=== PATIENT | female | born 1960 | race Caucasian/White ===

== ENCOUNTER 2019-07-18 08:03 | Day surgery (SDC) | payer BC ==
[2019-07-14 12:06] VITALS: BMI 33.5
[~2019-07-18 08:03] MED LIST: BUPIVACAINE LIPOSOME/PF (EXPAREL) 266 MG/20 ML VIAL ONE; BUPIVICAINE 0.25%/MORPH PF/KETOROLAC - 51ML DISP.SYRINGE IA ONE; CEFAZOLIN 2 GM in DEXTROSE 5%-WATER - 50 ML IVPB ONE; CELECOXIB 200 MG CAPSULE PO ONE; MIDAZOLAM HCL 2 MG/2 ML SINGLE DOSE VIAL ONE; SODIUM CHLORIDE 0.9% P/F 10 ML VIAL IJ ONE; TRANEXAMIC ACID 1000 MG/10 ML VIAL IVPUSH ONE
--- NOTE | 2019-07-18 08:03 | HP ---
[facility] - Chief Complaint Chief Complaint: left knee pain - Past Medical History Allergies/Adverse Reactions: Allergies Allergy/AdvReac Type Severity Reaction Status Date / Time No Known Allergies Allergy Verified 07/09/19 15:07 - Current Medications Current Medications: Home Medications Medication Instructions Recorded NK [No Known Home Medication] 07/09/19 [facility] Physical Exam - Physical Examination General Appearance: Well Nourished, Well Developed, Alert & Oriented x3 ENT: Clear Lung: Normal air movement Heart: Regular rate & rhythm Extremities: Other (left knee- +swelling, + ttp medially, decr rom, nvi, xrays show grade4 medial compartment djd) Neurological: Intact, Alert, Oriented [facility] Impression/Plan - Impression/Plan Impression: left knee medial djd Operative Procedure: left medial [place] ukr Date to be Performed: 07/18/19
[2019-07-18] MEDS ORDERED: CELECOXIB 200 MG CAPSULE PO ONE (08:32)
[2019-07-18] MEDS ORDERED: ceFAZolin SODIUM 1 GM VIAL ONE ×2 (08:39→09:58)
[2019-07-18] MEDS ORDERED: THROMBIN (RECOMBINANT) 5,000 UNIT VIAL TP ONE (08:39)
[2019-07-18] MEDS ORDERED: GELATIN, ABSORBABLE 12-7MM EACH SPONGE TP ONE (08:40)
[2019-07-18] MEDS ORDERED: BUPIVACAINE HCL/PF 0.5% (5 MG/ML) 30 ML VIAL IJ ONE (08:50)
[2019-07-18] MEDS ORDERED: ONDANSETRON 4 MG/2 ML VIAL ONE (09:58)
[2019-07-18] MEDS ORDERED: DEXAMETHASONE SOD PHOSPHATE 4 MG/1 ML VIAL ONE (09:58)
[2019-07-18] MEDS ORDERED: ONDANSETRON 4 MG/2 ML VIAL IVPUSH PRN ×2 (10:09→12:12)
[2019-07-18] MEDS ORDERED: MAG HYDROX/AL HYDROX/SIMETH 30 ML UNIT-DOSE CUP PO PRN (10:09)
[2019-07-18] MEDS ORDERED: LACTATED RINGERS SOLUTION 1,000 ML IV SCH (10:15)
[2019-07-18] MEDS ORDERED: THROMBIN (BOVINE) 5,000 UNIT VIAL TP ONE (10:31)
[2019-07-18] MEDS ORDERED: GELATIN, ABSORBABLE 100 EACH SPONGE TP ONE (10:32)
[2019-07-18] MEDS ORDERED: BUPIVICAINE 0.25%/MORPH PF/KETOROLAC - 51ML DISP.SYRINGE IA ONE (11:10)
--- NOTE | 2019-07-18 11:35 | OP ---
Operative Note - Note: Operative Date: 07/18/19 (eb) Pre-Operative Diagnosis: left knee medial djd Operation: left medial [place] ukr Post-Operative Diagnosis: Same as Pre-op Surgeon: Mike Arciniega [employer] System Administrator: Adiel Fuentes Anesthesiologist/QUALITY ASSURANCE: Guanako Velez Anesthesia: Spinal, Local Specimens Removed: bone fragments Estimated Blood Loss (mls): 150 Operative Report Dictated: Yes
[2019-07-18] MEDS ORDERED: PROMETHAZINE HCL 25 MG/1 ML VIAL IVPUSH PRN (12:12)
[2019-07-18] MEDS ORDERED: oxyCODONE HCL 5 MG TABLET PO PRN ×2 (12:12)
[2019-07-18] MEDS: ACETAMINOPHEN 325 MG TABLET (FP) PO SCH ×2 (12:17→17:51)
[2019-07-18] MEDS ORDERED: INSULIN (NOVOLOG) ASPART 100 UNITS/ML 10ML VIAL ONE (16:46)
[2019-07-18] MEDS: INSULIN SLIDING SCALE (NOVOLOG) 1 VIAL SQ SCH ×2 (16:58→21:51)
[2019-07-18] MEDS: CEFAZOLIN 2 GM/D5W 2 GM/50 ML ML IVPB SCH (17:50)
[2019-07-18] MEDS: oxyCODONE HCL 10 MG SUSTAINED ACTING TABLET PO SCH (21:49)
[2019-07-18] MEDS: SENNOSIDES/DOCUSATE COMBO (SENNA PLUS) TABLET (UD) PO SCH (21:51)
[2019-07-18] MEDS ORDERED: ATORVASTATIN CA 20 MG TABLET (FP) PO SCH (22:00)
[2019-07-19] MEDS: ACETAMINOPHEN 325 MG TABLET (FP) PO SCH ×2 (00:53→06:29)
[2019-07-19] MEDS: CEFAZOLIN 2 GM/D5W 2 GM/50 ML ML IVPB SCH (01:08)
[2019-07-19] MEDS: INSULIN SLIDING SCALE (NOVOLOG) 1 VIAL SQ SCH (06:30)
--- NOTE | 2019-07-19 06:30 | SPEC ---
DATE OF OPERATION: 07/18/2019 PREOPERATIVE DIAGNOSIS: Left knee degenerative joint disease. POSTOPERATIVE DIAGNOSIS: Left knee degenerative joint disease. PROCEDURE: Left medial unicompartmental knee replacement with robotic-assisted navigation (MAKOplasty) and patelloplasty. SURGICAL ATTENDING: Mike Arciniega MD ANESTHESIA: Regional and spinal. CLOSURE: Medial DARLEEN components with a 4 femur, 3 tibia, and 9 polyethylene; No. 1 Vicryl fascia, 0 and 2-0 subcutaneous, 3-0 Monocryl subcuticular with skin glue for skin, 4-0 undyed Vicryl for pin sites. ESTIMATED BLOOD LOSS: Less than 100 mL. COMPLICATIONS: None. CONDITION: To recovery in stable condition. DESCRIPTION OF OPERATIVE PROCEDURE: Patient was taken to the operating room on July 18, 2019. Spinal and regional anesthesia was administered by the anesthesiologist. IV Kefzol and TXA were administered prophylactically prior to the case. A well-padded pneumatic tourniquet was placed on the left proximal thigh. The left lower extremity was prepped and draped in the usual sterile fashion. A 6- to 8-cm longitudinal incision over the medial side of the patella from mid patella to the tibial tubercle was incised and was deepened using Bovie cautery. An arthrotomy was then made just medial to the patellar tendon and the patella. Subperiosteal dissection was done on the anteromedial proximal tibia all the way back to the MCL. Partial fat pad excision was performed, exposing the medial compartment. Checkpoint was malleable at both the femur and the tibia. Using 2 stab incisions in the femur 1 handbreadth above the patella on the femur and 2 stab incisions 1 handbreadth below the tibial tubercle on the tibia, 2 threaded pins were drilled in parallel fashion from anterior to posterior, going through the proximal cortex and engaging the 2nd but not through the 2nd cortex. To these threaded pins were fastened navigation rays, 1 on the femur and 1 on the tibia. The knee was then registered with the navigation device with the center of the rotation of the hip, medial and lateral malleoli, and multiple points both on the femur and on the tibia. Excellent registration of less than 0.5 mm was obtained on both to ensure adequate registration. The navigation device ensured us to "pop the bubbles" both on the femur and the tibia and that was performed and passed registration. The knee was then thoroughly inspected to remove all osteophytes both on the femur and the tibia. Also, osteophytes on the trochlea and on the surface of the patella were removed as well. The knee was then stressed with valgus stress at 0, 30, 60, 90, and 120 degrees of flexion. This propagated a looseness/tightness graft. The virtual positions of the components were then optimized to ensure an excellent graft. The tracking also was optimized by manipulating the virtual position to ensure that the femoral component articulated with the central portion of the tibial component. The robot was then brought into the field and was registered. The robot was used to bur the bone on both the femur and the tibia as to the specifications of the components. The trial components were then applied on both the femur and the tibia with an appropriate polyethylene insert. The knee was taken through a range of motion and found to have full extension, full flexion, with excellent stability. Stressing the graft revealed an excellent looseness/tightness graft with the trial components in place. The trial components were removed. The knee was thoroughly irrigated with a copious amount of antibiotic irrigation. The real components were then cemented in using modern generation cement techniques with antibiotic cement and pressurization. After the cement was hardened, the knee was thoroughly inspected to remove out all excess cement. The real polyethylene insert was then clipped into place. Range of motion and stability were again assessed to be as they were with the trials. At this time, the pins and the checkpoints were removed. The knee was again thoroughly irrigated. The arthrotomy was closed with No. 1 Vicryl, 0 and 2-0 subcutaneous, and 3-0 Monocryl subcuticular with skin glue for the skin, 4-0 undyed Vicryl for the pin sites. Sterile pressure dressing was placed over the knee. Patient awakened from anesthesia and transferred to recovery in stable condition. No complications. Estimated blood loss negligible. X-rays postoperatively revealed excellent position of the components. Ceferino [id number]
[2019-07-19 06:53] VITALS: BP 138/73; PULSE 74; TEMP 97.5
[2019-07-19] MEDS ORDERED: metFORMIN HCL 500 MG TABLET (FP) PO SCH (07:00)
[2019-07-19] MEDS ORDERED: ASPIRIN 325 MG TABLET PO SCH (08:00)
[2019-07-19] MEDS: SENNOSIDES/DOCUSATE COMBO (SENNA PLUS) TABLET (UD) PO SCH (09:58)
[2019-07-19] MEDS: oxyCODONE HCL 10 MG SUSTAINED ACTING TABLET PO SCH (09:59)
[2019-07-19] MEDS ORDERED: MULTIVITAMINS (DAILY MVI) TABLET (FP) PO SCH (10:00)
[2019-07-19] MEDS ORDERED: LISINOPRIL 5 MG TABLET (FP) PO SCH (10:00)
[2019-07-19] MEDS ORDERED: PANTOPRAZOLE 40 MG TABLET (FP) PO SCH (10:00)
[2019-07-19] MEDS ORDERED: FERROUS SO4 325 MG TABLET (FP) PO SCH (10:00)
== END 2019-07-19 10:28 | disposition home health service (06) ==
LOC: FM/S 08:03 → FASUSAT 08:03
PROVIDERS: ATTEND Orthopaedic Surgery
PROC: 8E0YXBZ Computer Assisted Procedure of Lower Extremity (ICD-10-PCS; 2019-07-18)
PROC: 8E0Y0CZ Robotic Assisted Procedure of Lower Extremity, Open Approach (ICD-10-PCS; 2019-07-18)
PROC: 0SRD0L9 Replacement of Left Knee Joint with Medial Unicondylar Synthetic Substitute, Cemented, Open Approach (ICD-10-PCS; principal; 2019-07-18 10:14)
DX: M17.12 Unilateral primary osteoarthritis, left knee (principal)
CPT/HCPCS: 20985; 27446; C1776; S2900; 73560-TC-LT-FY; 82962; 94760; 97116-GP; 97162-GP

== ENCOUNTER → 2022-05-03 | Day surgery (SDC) | payer BC | END | disposition home or self-care (01) | LOC: JRADUS-SUR 10:07 | PROVIDERS: ATTEND Family Medicine | PROC: 0H9T3ZX Drainage of Right Breast, Percutaneous Approach, Diagnostic (ICD-10-PCS; principal; 2022-05-03) | DX: C50.911 Malignant neoplasm of unspecified site of right female breast (principal) | CPT/HCPCS: 19083; 77065-TC; 87899; 88305-TC; 88342-TC; A4648 ==

== ENCOUNTER 2022-06-20 04:23 | Day surgery (SDC) | payer BC ==
[2022-06-15 09:24] VITALS: BMI 34.5
[2022-06-20] MEDS ORDERED: PROPOFOL 20 ML ONE ×2 (08:45→15:33)
[2022-06-20] MEDS ORDERED: SUCCINYLCHOLINE CHLORIDE 200 MG/10 ML SYRINGE ONE (08:45)
[2022-06-20] MEDS ORDERED: MIDAZOLAM HCL 2 MG/2 ML SINGLE DOSE VIAL ONE (10:09)
[2022-06-20] MEDS ORDERED: HYDROmorphone HCl 2 MG/ML VIAL ONE (10:11)
[2022-06-20] MEDS ORDERED: LIDOCAINE HCL/PF 2% SDV 5ML VIAL ONE (10:12)
[2022-06-20] MEDS ORDERED: ceFAZolin SODIUM 1 GM VIAL IVPB ONE ×2 (11:45→15:30)
[2022-06-20] MEDS ORDERED: DEXAMETHASONE SOD PHOSPHATE 4 MG/1 ML VIAL ONE ×2 (11:49→15:32)
[2022-06-20] MEDS ORDERED: ceFAZolin SODIUM 1 GM VIAL ONE ×2 (11:49→15:29)
[2022-06-20] MEDS ORDERED: ONDANSETRON 4 MG/2 ML VIAL IVPB PRN (13:50)
[2022-06-20] MEDS ORDERED: ALPRAZolam 0.25 MG TABLET PO ONE (13:50)
[2022-06-20] MEDS ORDERED: ACETAMINOPHEN 500 MG TABLET (FP) PO PRN (13:50)
[2022-06-20] MEDS ORDERED: HYDROmorphone *PCA* 10MG/50ML DISP.SYRIN PCA SCH ×2 (14:00→17:00)
[2022-06-20] MEDS ORDERED: LACTATED RINGERS SOLUTION 1,000 ML/1,000 ML INFUS.BAG IV SCH (14:00)
[2022-06-20] MEDS ORDERED: oxyCODONE HCL 5 MG TABLET PO PRN (16:27)
[2022-06-20] MEDS ORDERED: HYDROmorphone *PCA* 10MG/50ML DISP.SYRIN ONE (17:02)
[2022-06-20] MEDS ORDERED: CEFAZOLIN 1 GM in DEXTROSE 5%-WATER - 50 ML IVPB SCH ×3 (18:00→23:45)
[2022-06-20 21:21] VITALS: RESP 20
[2022-06-21] MEDS: CEFAZOLIN 1 GM in DEXTROSE 5%-WATER - 50 ML IVPB SCH ×2 (00:13→06:54)
[2022-06-21 07:43] VITALS: BP 134/69; PULSE 83
[2022-06-21 08:07] VITALS: TEMP 98.9
== END 2022-06-21 11:52 | disposition home or self-care (01) ==
LOC: JASUSAT 04:23 → EDSTATUS 09:00 → J8W 20:12 → JASUSAT 06-21 11:52
PROVIDERS: ATTEND Surgery
PROC: 0HTV0ZZ Resection of Bilateral Breast, Open Approach (ICD-10-PCS; principal; 2022-06-20 10:30)
PROC: 0HRV0JZ Replacement of Bilateral Breast with Synthetic Substitute, Open Approach (ICD-10-PCS; 2022-06-20 10:30)
DX: C50.911 Malignant neoplasm of unspecified site of right female breast (principal); D24.2 Benign neoplasm of left breast
CPT/HCPCS: 78195-TC; 82962; 88307-TC; 94760; A9541; C1781; C1789; Q4116

== ENCOUNTER 2022-10-18 10:57 | Day surgery (SDC) | payer BC ==
[~2022-10-18 10:57] MED LIST changes: -BUPIVACAINE LIPOSOME/PF (EXPAREL) 266 MG/20 ML VIAL ONE; -BUPIVICAINE 0.25%/MORPH PF/KETOROLAC - 51ML DISP.SYRINGE IA ONE; -CEFAZOLIN 2 GM in DEXTROSE 5%-WATER - 50 ML IVPB ONE; -CELECOXIB 200 MG CAPSULE PO ONE; +DEXAMETHASONE SODIUM PHOSPHATE 10 MG in SODIUM CHLORIDE 50 ML IVPB ONE; +FOSAPREPITANT DIMEGLUMINE 150 MG in SODIUM CHLORIDE 145 ML IVPB ONE; -MIDAZOLAM HCL 2 MG/2 ML SINGLE DOSE VIAL ONE; +PALONOSETRON HCL 0.25 MG/5 ML VIAL IVPUSH ONE; -SODIUM CHLORIDE 0.9% P/F 10 ML VIAL IJ ONE; +SODIUM CHLORIDE 250 ML IV ONE; +SODIUM CHLORIDE IVPB ONE; -TRANEXAMIC ACID 1000 MG/10 ML VIAL IVPUSH ONE; +TRASTUZUMAB ANNS IVPB ONE
[2022-10-18 11:26] LABS: BASO % 0.7 % (0-2.0); EOS % 1.6 % (0-4.5); HEMATOCRIT 39.2 % (32.4-45.2); HEMOGLOBIN 12.5 GM/dL (10.7-15.3); LYMPH % 43.4 % (8-40); MCH 27.7 pg (25.7-33.7); MCHC 31.9 g/dl (32.0-36.0); MEAN CELL VOLUME 86.8 fl (80-96); MEAN PLT VOLUME 8.6 fl (7.5-11.1); MONO % 6.2 % (3.8-10.2); NEUT % 48.1 % (42.8-82.8); PLATELET COUNT 243 10^3/uL (134-434); RBC 4.52 M/mm3 (3.60-5.2); RDW 15.4 % (11.6-15.6); WHITE BLOOD COUNT 8.5 K/mm3 (4.0-10.0)
[2022-10-18 11:38] LABS: ALBUMIN 3.8 g/dl (3.4-5.0); BLOOD UREA NITROGEN 19.3 mg/dL (7-18); CALCIUM 9.5 mg/dL (8.5-10.1); MAGNESIUM 2.1 mg/dL (1.8-2.4)
[2022-10-18 11:41] LABS: BILIRUBIN,DIRECT 0.1 mg/dL (0.0-0.2); CREATININE 0.8 mg/dL (0.55-1.3)
[2022-10-18 11:43] LABS: BILIRUBIN,TOTAL 0.3 mg/dL (0.2-1); TOT PROT 7.8 g/dl (6.4-8.2)
[2022-10-18] MEDS ORDERED: DOCETAXEL 140 MG in SODIUM CHLORIDE 250 ML IV ONE (12:00)
[2022-10-18] MEDS ORDERED: CARBOPLATIN IVPB ONE ×2 (13:00)
[2022-10-18] MEDS ORDERED: SODIUM CHLORIDE IVPB ONE ×2 (13:00)
[2022-10-18 18:18] VITALS: RESP 18; TEMP 98.1
[2022-10-18 18:28] VITALS: BP 145/80; PULSE 77
[2022-10-18] MEDS ORDERED: PORTA CATH FLUSH 10 ML IVPUSH PRN (18:28)
== END 2022-10-18 15:45 | disposition home or self-care (01) ==
LOC: JONCCHEMO 10:57
PROVIDERS: ATTEND Internal Medicine Hematology & Oncology
DX: Z51.11 Encounter for antineoplastic chemotherapy (principal); C50.011 Malignant neoplasm of nipple and areola, right female breast; Z17.1 Estrogen receptor negative status [ER-]
CPT/HCPCS: 36415; 80048; 80076; 82378; 83735; 85025; 86300; 96367; 96375; 96413; 96417; J1453; J2469; J9171

== ENCOUNTER 2022-10-19 09:34 | Day surgery (SDC) | payer BC ==
[2022-10-19] MEDS ORDERED: PEGFILGRASTIM-CBQV (UDENYCA) 6 MG/0.6 ML SYRINGE SQ ONE (10:00)
[2022-10-19 10:23] VITALS: BP 160/77; PULSE 78; RESP 20; TEMP 97.5
== END 2022-10-19 10:27 | disposition home or self-care (01) ==
LOC: JONCCHEMO 09:34
PROVIDERS: ATTEND Internal Medicine Hematology & Oncology
PROC: 3E013GC Introduction of Other Therapeutic Substance into Subcutaneous Tissue, Percutaneous Approach (ICD-10-PCS; principal; 2022-10-19)
DX: C50.011 Malignant neoplasm of nipple and areola, right female breast (principal); Z76.89 Persons encountering health services in other specified circumstances
CPT/HCPCS: 96372; Q5111

== ENCOUNTER 2022-11-08 11:24 | Day surgery (SDC) | payer BC ==
[~2022-11-08 11:24] MED LIST changes: +LIDOCAINE 2.5%/PRILOCAINE 2.5% 30 GRAM TUBE TP ONE
[2022-11-08] MEDS ORDERED: SODIUM CHLORIDE IV ONE (11:30)
[2022-11-08] MEDS ORDERED: DOCETAXEL IV ONE (11:30)
[2022-11-08] MEDS ORDERED: LIDOCAINE 2.5%/PRILOCAINE 2.5% (5 Gram/TUBE) TP ONE (11:30)
[2022-11-08 12:11] LABS: BASO % 0.7 % (0-2.0); EOS % 0.6 % (0-4.5); HEMATOCRIT 37.3 % (32.4-45.2); HEMOGLOBIN 12.2 GM/dL (10.7-15.3); LYMPH % 39.1 % (8-40); MCH 28.5 pg (25.7-33.7); MCHC 32.6 g/dl (32.0-36.0); MEAN CELL VOLUME 87.3 fl (80-96); MEAN PLT VOLUME 7.6 fl (7.5-11.1); MONO % 8.2 % (3.8-10.2); NEUT % 51.4 % (42.8-82.8); PLATELET COUNT 294 10^3/uL (134-434); RBC 4.27 M/mm3 (3.60-5.2); RDW 15.6 % (11.6-15.6); WHITE BLOOD COUNT 10.6 K/mm3 (4.0-10.0)
[2022-11-08] MEDS ORDERED: CARBOPLATIN IVPB ONE (12:30)
[2022-11-08] MEDS ORDERED: SODIUM CHLORIDE IVPB ONE (12:30)
[2022-11-08 12:31] LABS: ALBUMIN 3.8 g/dl (3.4-5.0); BLOOD UREA NITROGEN 18.8 mg/dL (7-18); CALCIUM 9.1 mg/dL (8.5-10.1)
[2022-11-08 12:36] LABS: BILIRUBIN,DIRECT 0.1 mg/dL (0.0-0.2); BILIRUBIN,TOTAL 0.3 mg/dL (0.2-1); CREATININE 0.7 mg/dL (0.55-1.3); TOT PROT 7.5 g/dl (6.4-8.2)
[2022-11-08 16:39] VITALS: BP 145/92; PULSE 83; RESP 20; TEMP 97.9
[2022-11-08] MEDS ORDERED: PORTA CATH FLUSH 10 ML IVPUSH PRN ×2 (16:39→16:45)
== END 2022-11-08 17:23 | disposition home or self-care (01) ==
LOC: JONCCHEMO 11:24
PROVIDERS: ATTEND Internal Medicine Hematology & Oncology
DX: Z51.11 Encounter for antineoplastic chemotherapy (principal); C50.011 Malignant neoplasm of nipple and areola, right female breast
CPT/HCPCS: 36415; 80048; 80076; 83735; 85025; 96367; 96375; 96413; 96417; J1453; J2469; J9171; Q5117

== ENCOUNTER 2022-11-09 09:21 | Day surgery (SDC) | payer BC ==
[~2022-11-09 09:21] MED LIST changes: +D5-1/2NS+20 MEQ KCL - 20 MEQ/1,000 ML INFUS.BAG IV ONE; -DEXAMETHASONE SODIUM PHOSPHATE 10 MG in SODIUM CHLORIDE 50 ML IVPB ONE; -FOSAPREPITANT DIMEGLUMINE 150 MG in SODIUM CHLORIDE 145 ML IVPB ONE; -LIDOCAINE 2.5%/PRILOCAINE 2.5% 30 GRAM TUBE TP ONE; +MAGNESIUM SULFATE IN WATER 2 GM/50 ML IVPB IVPB ONE; -PALONOSETRON HCL 0.25 MG/5 ML VIAL IVPUSH ONE; -SODIUM CHLORIDE 250 ML IV ONE; -SODIUM CHLORIDE IVPB ONE; -TRASTUZUMAB ANNS IVPB ONE
[2022-11-09] MEDS ORDERED: DEXAMETHASONE SODIUM PHOSPHATE IVPB ONE (09:30)
[2022-11-09] MEDS ORDERED: PROCHLORPERAZINE IVPB ONE (09:30)
[2022-11-09] MEDS ORDERED: [UNRECOGNIZED DRUG - OTHER] IVPB ONE (09:30)
[2022-11-09] MEDS ORDERED: PEGFILGRASTIM-CBQV (UDENYCA) 6 MG/0.6 ML SYRINGE SQ ONE (10:00)
[2022-11-09 16:59] VITALS: BP 123/71; PULSE 60; RESP 20; TEMP 98
[2022-11-09] MEDS ORDERED: PORTA CATH FLUSH 10 ML IVPUSH PRN (16:59)
== END 2022-11-09 13:00 | disposition home or self-care (01) ==
LOC: JONCCHEMO 09:21
PROVIDERS: ATTEND Internal Medicine Hematology & Oncology
PROC: 3E04305 Introduction of Other Antineoplastic into Central Vein, Percutaneous Approach (ICD-10-PCS; principal; 2022-11-09)
PROC: 3E013GC Introduction of Other Therapeutic Substance into Subcutaneous Tissue, Percutaneous Approach (ICD-10-PCS; 2022-11-09)
DX: Z51.11 Encounter for antineoplastic chemotherapy (principal); C90.00 Multiple myeloma not having achieved remission
CPT/HCPCS: 96366; 96367; 96372; 96413; 96417; Q5111

== ENCOUNTER 2022-11-10 09:03 | Day surgery (SDC) | payer BC ==
[~2022-11-10 09:03] MED LIST changes: -MAGNESIUM SULFATE IN WATER 2 GM/50 ML IVPB IVPB ONE
[2022-11-10] MEDS ORDERED: DEXAMETHASONE INJECTION 4 MG in SODIUM CHLORIDE 50 ML IVPB ONE (10:00)
[2022-11-10] MEDS ORDERED: MAGNESIUM SULFATE IN WATER 2 GM/50 ML IVPB IVPB ONE (10:00)
[2022-11-10] MEDS ORDERED: PROCHLORPERAZINE INJECTION 10 MG in SODIUM CHLORIDE 50 ML IVPB ONE (10:00)
[2022-11-10] MEDS ORDERED: PROCHLORPERAZINE INJECTION 10 MG/2 ML VIAL IVPB ONE (10:00)
[2022-11-10 17:25] VITALS: BP 130/72; PULSE 76; RESP 20; TEMP 98
[2022-11-10] MEDS ORDERED: PORTA CATH FLUSH 10 ML IVPUSH PRN (17:25)
== END 2022-11-10 13:00 | disposition home or self-care (01) ==
LOC: JONCCHEMO 09:03
PROVIDERS: ATTEND Internal Medicine Hematology & Oncology
PROC: 3E043GC Introduction of Other Therapeutic Substance into Central Vein, Percutaneous Approach (ICD-10-PCS; principal; 2022-11-10)
DX: C50.011 Malignant neoplasm of nipple and areola, right female breast (principal)
CPT/HCPCS: 96365; 96366; J1100

== ENCOUNTER 2022-11-29 11:09 | Day surgery (SDC) | payer BC ==
[~2022-11-29 11:09] MED LIST changes: -D5-1/2NS+20 MEQ KCL - 20 MEQ/1,000 ML INFUS.BAG IV ONE; +DEXAMETHASONE SODIUM PHOSPHATE 10 MG in SODIUM CHLORIDE 50 ML IVPB ONE; +DOCETAXEL IV ONE; +FOSAPREPITANT DIMEGLUMINE 150 MG in SODIUM CHLORIDE 145 ML IVPB ONE; +PALONOSETRON HCL 0.25 MG/5 ML VIAL IVPUSH ONE; +SODIUM CHLORIDE 250 ML IV ONE; +SODIUM CHLORIDE IV ONE; +TRASTUZUMAB-ANNS 500 MG in SODIUM CHLORIDE 250 ML IVPB ONE
[2022-11-29 11:23] LABS: BASO % 0.7 % (0-2.0); EOS % 0.8 % (0-4.5); HEMATOCRIT 35.8 % (32.4-45.2); MCH 29.8 pg (25.7-33.7); MCHC 33.5 g/dl (32.0-36.0); MEAN CELL VOLUME 88.9 fl (80-96); MEAN PLT VOLUME 6.8 fl (7.5-11.1); MONO % 8.3 % (3.8-10.2); NEUT % 56.2 % (42.8-82.8); PLATELET COUNT 201 10^3/uL (134-434); RBC 4.02 M/mm3 (3.60-5.2); WHITE BLOOD COUNT 6.1 K/mm3 (4.0-10.0)
[2022-11-29 11:48] LABS: ALBUMIN 3.7 g/dl (3.4-5.0); BLOOD UREA NITROGEN 13.5 mg/dL (7-18); CALCIUM 9.1 mg/dL (8.5-10.1); MAGNESIUM 2.1 mg/dL (1.8-2.4)
[2022-11-29 11:51] LABS: BILIRUBIN,DIRECT 0.1 mg/dL (0.0-0.2)
[2022-11-29 11:52] LABS: CREATININE 0.7 mg/dL (0.55-1.3)
[2022-11-29 11:53] LABS: BILIRUBIN,TOTAL 0.3 mg/dL (0.2-1); TOT PROT 7.5 g/dl (6.4-8.2)
[2022-11-29] MEDS ORDERED: SODIUM CHLORIDE IVPB ONE (12:00)
[2022-11-29] MEDS ORDERED: CARBOPLATIN IVPB ONE (12:00)
[2022-11-29 16:47] VITALS: RESP 18; TEMP 98.1
[2022-11-29 16:58] VITALS: BP 115/69; PULSE 88
[2022-11-29] MEDS ORDERED: PORTA CATH FLUSH 10 ML IVPUSH PRN (16:58)
== END 2022-11-29 16:10 | disposition home or self-care (01) ==
LOC: JONCCHEMO 11:09
PROVIDERS: ATTEND Internal Medicine Hematology & Oncology
DX: Z51.11 Encounter for antineoplastic chemotherapy (principal); C50.011 Malignant neoplasm of nipple and areola, right female breast
CPT/HCPCS: 36415; 80048; 80076; 83735; 85025; 96367; 96375; 96413; 96417; J1453; J2469; J9171; Q5117

== ENCOUNTER → 2022-11-30 15:30 | Day surgery (SDC) | payer BC ==
[2022-11-30 15:15] VITALS: TEMP 97.9
[2022-11-30 15:25] VITALS: BP 139/66; PULSE 81; RESP 20
[~2022-11-30 15:30] MED LIST changes: +D5-1/2NS+20 MEQ KCL - 20 MEQ/1,000 ML INFUS.BAG IV ONE; -DEXAMETHASONE SODIUM PHOSPHATE 10 MG in SODIUM CHLORIDE 50 ML IVPB ONE; +DEXAMETHASONE SODIUM PHOSPHATE 6 MG in SODIUM CHLORIDE 50 ML IVPB ONE; -DOCETAXEL IV ONE; -FOSAPREPITANT DIMEGLUMINE 150 MG in SODIUM CHLORIDE 145 ML IVPB ONE; +MAGNESIUM SULFATE IN WATER 2 GM/50 ML IVPB IVPB ONE; -PALONOSETRON HCL 0.25 MG/5 ML VIAL IVPUSH ONE; +PEGFILGRASTIM-CBQV (UDENYCA) 6 MG/0.6 ML SYRINGE SQ ONE; +PORTA CATH FLUSH 10 ML IVPUSH PRN; +PROCHLORPERAZINE INJECTION 10 MG in SODIUM CHLORIDE 50 ML IVPB ONE; -SODIUM CHLORIDE 250 ML IV ONE; -SODIUM CHLORIDE IV ONE; -TRASTUZUMAB-ANNS 500 MG in SODIUM CHLORIDE 250 ML IVPB ONE
== END | disposition home or self-care (01) ==
LOC: JONCCHEMO 15:30
PROVIDERS: ATTEND Internal Medicine Hematology & Oncology
PROC: 3E013GC Introduction of Other Therapeutic Substance into Subcutaneous Tissue, Percutaneous Approach (ICD-10-PCS; principal; 2022-11-30)
PROC: 3E043GC Introduction of Other Therapeutic Substance into Central Vein, Percutaneous Approach (ICD-10-PCS; 2022-11-30)
DX: C50.011 Malignant neoplasm of nipple and areola, right female breast (principal); Z76.89 Persons encountering health services in other specified circumstances
CPT/HCPCS: 96365; 96372; 96375; Q5111

== ENCOUNTER 2022-12-01 11:42 | Day surgery (SDC) | payer BC ==
[~2022-12-01 11:42] MED LIST changes: +DEXAMETHASONE SODIUM PHOSPHATE 4 MG in SODIUM CHLORIDE 50 ML IVPB ONE; -DEXAMETHASONE SODIUM PHOSPHATE 6 MG in SODIUM CHLORIDE 50 ML IVPB ONE; -PEGFILGRASTIM-CBQV (UDENYCA) 6 MG/0.6 ML SYRINGE SQ ONE; -PORTA CATH FLUSH 10 ML IVPUSH PRN
[2022-12-01] MEDS ORDERED: PORTA CATH FLUSH 10 ML IVPUSH PRN (14:30)
[2022-12-01 16:25] VITALS: RESP 18; TEMP 98.1
[2022-12-01 16:30] VITALS: BP 134/78; PULSE 90
== END 2022-12-01 15:00 | disposition home or self-care (01) ==
LOC: JONCCHEMO 11:42
PROVIDERS: ATTEND Internal Medicine Hematology & Oncology
PROC: 3E043GC Introduction of Other Therapeutic Substance into Central Vein, Percutaneous Approach (ICD-10-PCS; principal; 2022-12-01)
DX: C50.011 Malignant neoplasm of nipple and areola, right female breast (principal); Z76.89 Persons encountering health services in other specified circumstances
CPT/HCPCS: 96365; 96367

== ENCOUNTER 2022-12-20 10:18 | Day surgery (SDC) | payer BC ==
[~2022-12-20 10:18] MED LIST changes: -D5-1/2NS+20 MEQ KCL - 20 MEQ/1,000 ML INFUS.BAG IV ONE; +DEXAMETHASONE SODIUM PHOSPHATE 10 MG in SODIUM CHLORIDE 50 ML IVPB ONE; -DEXAMETHASONE SODIUM PHOSPHATE 4 MG in SODIUM CHLORIDE 50 ML IVPB ONE; +FOSAPREPITANT DIMEGLUMINE 150 MG in SODIUM CHLORIDE 145 ML IVPB ONE; -MAGNESIUM SULFATE IN WATER 2 GM/50 ML IVPB IVPB ONE; +PALONOSETRON HCL 0.25 MG/5 ML VIAL IVPUSH ONE; -PROCHLORPERAZINE INJECTION 10 MG in SODIUM CHLORIDE 50 ML IVPB ONE; +SODIUM CHLORIDE 250 ML IV ONE
[2022-12-20] MEDS ORDERED: TRASTUZUMAB-ANNS 500 MG in SODIUM CHLORIDE 250 ML IVPB ONE (10:30)
[2022-12-20 10:38] LABS: BASO % 0.7 % (0-2.0); EOS % 0.3 % (0-4.5); HEMATOCRIT 31.5 % (32.4-45.2); HEMOGLOBIN 10.4 GM/dL (10.7-15.3); LYMPH % 38.9 % (8-40); MCH 30.1 pg (25.7-33.7); MEAN CELL VOLUME 91.4 fl (80-96); MONO % 9.8 % (3.8-10.2); NEUT % 50.3 % (42.8-82.8); PLATELET COUNT 235 10^3/uL (134-434); RBC 3.44 M/mm3 (3.60-5.2); RDW 21.2 % (11.6-15.6); WHITE BLOOD COUNT 7.6 K/mm3 (4.0-10.0)
[2022-12-20] MEDS ORDERED: SODIUM CHLORIDE IV ONE (11:00)
[2022-12-20] MEDS ORDERED: DOCETAXEL IV ONE (11:00)
[2022-12-20 11:20] LABS: ALBUMIN 3.4 g/dl (3.4-5.0); CALCIUM 9.1 mg/dL (8.5-10.1)
[2022-12-20 11:21] LABS: BLOOD UREA NITROGEN 18.7 mg/dL (7-18); MAGNESIUM 1.7 mg/dL (1.8-2.4)
[2022-12-20 11:23] LABS: BILIRUBIN,DIRECT 0.1 mg/dL (0.0-0.2)
[2022-12-20 11:24] LABS: CREATININE 0.7 mg/dL (0.55-1.3)
[2022-12-20 11:25] LABS: BILIRUBIN,TOTAL 0.3 mg/dL (0.2-1)
[2022-12-20] MEDS ORDERED: MAGNESIUM 2GM/50ML STERILE WATER IVPB IVPB ONE (11:25)
[2022-12-20] MEDS ORDERED: SODIUM CHLORIDE IVPB ONE (12:00)
[2022-12-20] MEDS ORDERED: CARBOPLATIN IVPB ONE (12:00)
[2022-12-20 12:51] LABS: ANISOCYTOSIS 1+; MACROCYTOSIS 1+
[2022-12-20 16:00] VITALS: RESP 18; TEMP 97.7
[2022-12-20] MEDS ORDERED: PORTA CATH FLUSH 10 ML IVPUSH PRN (16:03)
[2022-12-20 16:25] VITALS: BP 134/84; PULSE 89
[2022-12-21 08:08] LABS: CARCINOEMBRYONIC ANTIGEN 1.2 ng/mL (0.0-4.7)
== END 2022-12-20 16:31 | disposition home or self-care (01) ==
LOC: JONCCHEMO 10:18
PROVIDERS: ATTEND Internal Medicine Hematology & Oncology
DX: Z51.11 Encounter for antineoplastic chemotherapy (principal); C50.011 Malignant neoplasm of nipple and areola, right female breast
CPT/HCPCS: 36415; 80048; 80076; 82378; 83735; 85025; 86300; 96367; 96375; 96413; 96417; J1453; J2469; J9171; Q5117

== ENCOUNTER 2022-12-21 10:00 | Day surgery (SDC) | payer BC ==
[~2022-12-21 10:00] MED LIST changes: +D5-1/2NS+20 MEQ KCL - 20 MEQ/1,000 ML INFUS.BAG IV ONE; -DEXAMETHASONE SODIUM PHOSPHATE 10 MG in SODIUM CHLORIDE 50 ML IVPB ONE; +DEXAMETHASONE SODIUM PHOSPHATE 6 MG in SODIUM CHLORIDE 50 ML IVPB ONE; -FOSAPREPITANT DIMEGLUMINE 150 MG in SODIUM CHLORIDE 145 ML IVPB ONE; +MAGNESIUM SULFATE IN WATER 2 GM/50 ML IVPB IVPB ONE; -PALONOSETRON HCL 0.25 MG/5 ML VIAL IVPUSH ONE; +PEGFILGRASTIM-CBQV (UDENYCA) 6 MG/0.6 ML SYRINGE SQ ONE; +PROCHLORPERAZINE INJECTION 10 MG in SODIUM CHLORIDE 50 ML IVPB ONE; -SODIUM CHLORIDE 250 ML IV ONE
[2022-12-21 16:56] VITALS: RESP 16; TEMP 98
[2022-12-21 17:01] VITALS: BP 149/94; PULSE 78
[2022-12-21] MEDS ORDERED: PORTA CATH FLUSH 10 ML IVPUSH PRN (17:01)
== END 2022-12-21 13:40 | disposition home or self-care (01) ==
LOC: JONCCHEMO 10:00
PROVIDERS: ATTEND Internal Medicine Hematology & Oncology
PROC: 3E043GC Introduction of Other Therapeutic Substance into Central Vein, Percutaneous Approach (ICD-10-PCS; principal; 2022-12-21)
PROC: 3E013GC Introduction of Other Therapeutic Substance into Subcutaneous Tissue, Percutaneous Approach (ICD-10-PCS; 2022-12-21)
DX: C50.011 Malignant neoplasm of nipple and areola, right female breast (principal); Z76.89 Persons encountering health services in other specified circumstances
CPT/HCPCS: 96365; 96366; 96372; 96375; Q5111

== ENCOUNTER 2022-12-22 10:20 | Day surgery (SDC) | payer BC ==
[~2022-12-22 10:20] MED LIST changes: +DEXAMETHASONE SODIUM PHOSPHATE 4 MG in SODIUM CHLORIDE 50 ML IVPB ONE; -DEXAMETHASONE SODIUM PHOSPHATE 6 MG in SODIUM CHLORIDE 50 ML IVPB ONE; -PEGFILGRASTIM-CBQV (UDENYCA) 6 MG/0.6 ML SYRINGE SQ ONE
[2022-12-22] MEDS ORDERED: PORTA CATH FLUSH 10 ML IVPUSH PRN (13:45)
[2022-12-22 15:55] VITALS: TEMP 98
[2022-12-22 15:58] VITALS: BP 140/81; PULSE 91; RESP 18
== END 2022-12-22 13:45 | disposition home or self-care (01) ==
LOC: JONCCHEMO 10:20
PROVIDERS: ATTEND Internal Medicine Hematology & Oncology
DX: C50.011 Malignant neoplasm of nipple and areola, right female breast (principal); Z76.89 Persons encountering health services in other specified circumstances
CPT/HCPCS: 96365; 96375

== ENCOUNTER 2023-01-10 10:07 | Day surgery (SDC) | payer BC ==
[~2023-01-10 10:07] MED LIST changes: -D5-1/2NS+20 MEQ KCL - 20 MEQ/1,000 ML INFUS.BAG IV ONE; +DEXAMETHASONE SODIUM PHOSPHATE 10 MG in SODIUM CHLORIDE 50 ML IVPB ONE; -DEXAMETHASONE SODIUM PHOSPHATE 4 MG in SODIUM CHLORIDE 50 ML IVPB ONE; +FOSAPREPITANT DIMEGLUMINE 150 MG in SODIUM CHLORIDE 145 ML IVPB ONE; +LIDOCAINE 2.5%/PRILOCAINE 2.5% 30 GRAM TUBE TP ONE; -MAGNESIUM SULFATE IN WATER 2 GM/50 ML IVPB IVPB ONE; +PALONOSETRON HCL 0.25 MG/5 ML VIAL IVPUSH ONE; -PROCHLORPERAZINE INJECTION 10 MG in SODIUM CHLORIDE 50 ML IVPB ONE; +SODIUM CHLORIDE 250 ML IV ONE; +TRASTUZUMAB-ANNS 500 MG in SODIUM CHLORIDE 250 ML IVPB ONE
[2023-01-10] MEDS ORDERED: DOCETAXEL IV ONE (10:30)
[2023-01-10] MEDS ORDERED: SODIUM CHLORIDE IV ONE (10:30)
[2023-01-10 10:35] LABS: BASO % 0.3 % (0-2.0); EOS % 0.2 % (0-4.5); HEMATOCRIT 29.8 % (32.4-45.2); HEMOGLOBIN 10.2 GM/dL (10.7-15.3); LYMPH % 40.7 % (8-40); MCH 32.2 pg (25.7-33.7); MCHC 34.1 g/dl (32.0-36.0); MEAN CELL VOLUME 94.4 fl (80-96); MEAN PLT VOLUME 6.5 fl (7.5-11.1); NEUT % 49.8 % (42.8-82.8); PLATELET COUNT 168 10^3/uL (134-434); RBC 3.15 M/mm3 (3.60-5.2); RDW 22.2 % (11.6-15.6); WHITE BLOOD COUNT 6.4 K/mm3 (4.0-10.0)
[2023-01-10 11:12] LABS: CALCIUM 9.2 mg/dL (8.5-10.1)
[2023-01-10 11:13] LABS: ALBUMIN 3.4 g/dl (3.4-5.0); BLOOD UREA NITROGEN 15.6 mg/dL (7-18)
[2023-01-10 11:14] LABS: MAGNESIUM 1.8 mg/dL (1.8-2.4)
[2023-01-10 11:15] LABS: BILIRUBIN,DIRECT 0.1 mg/dL (0.0-0.2)
[2023-01-10 11:16] LABS: CREATININE 0.7 mg/dL (0.55-1.3)
[2023-01-10 11:17] LABS: ANISOCYTOSIS 1+; BILIRUBIN,TOTAL 0.2 mg/dL (0.2-1); MACROCYTOSIS 0
[2023-01-10 11:18] LABS: TOT PROT 7.1 g/dl (6.4-8.2)
[2023-01-10] MEDS ORDERED: CARBOPLATIN IVPB ONE (11:30)
[2023-01-10] MEDS ORDERED: SODIUM CHLORIDE IVPB ONE (11:30)
[2023-01-10 17:37] VITALS: TEMP 98
[2023-01-10] MEDS ORDERED: PORTA CATH FLUSH 10 ML IVPUSH PRN (17:52)
[2023-01-10 17:53] VITALS: BP 138/78; PULSE 86; RESP 18
== END 2023-01-10 15:20 | disposition home or self-care (01) ==
LOC: JONCCHEMO 10:07
PROVIDERS: ATTEND Internal Medicine Hematology & Oncology
DX: Z51.11 Encounter for antineoplastic chemotherapy (principal); C50.011 Malignant neoplasm of nipple and areola, right female breast
CPT/HCPCS: 36415; 80048; 80076; 82378; 83735; 85025; 96367; 96375; 96413; 96417; J1453; J2469; J9171; Q5117

== ENCOUNTER 2023-01-11 10:45 | Day surgery (SDC) | payer BC ==
[~2023-01-11 10:45] MED LIST changes: +D5-1/2NS+20 MEQ KCL - 20 MEQ/1,000 ML INFUS.BAG IV ONE; -DEXAMETHASONE SODIUM PHOSPHATE 10 MG in SODIUM CHLORIDE 50 ML IVPB ONE; +DEXAMETHASONE SODIUM PHOSPHATE 6 MG in SODIUM CHLORIDE 50 ML IVPB ONE; -FOSAPREPITANT DIMEGLUMINE 150 MG in SODIUM CHLORIDE 145 ML IVPB ONE; -LIDOCAINE 2.5%/PRILOCAINE 2.5% 30 GRAM TUBE TP ONE; +MAGNESIUM SULFATE IN WATER 2 GM/50 ML IVPB IVPB ONE; -PALONOSETRON HCL 0.25 MG/5 ML VIAL IVPUSH ONE; +PEGFILGRASTIM-CBQV (UDENYCA) 6 MG/0.6 ML SYRINGE SQ ONE; +PROCHLORPERAZINE INJECTION 10 MG in SODIUM CHLORIDE 50 ML IVPB ONE; -SODIUM CHLORIDE 250 ML IV ONE; -TRASTUZUMAB-ANNS 500 MG in SODIUM CHLORIDE 250 ML IVPB ONE
[2023-01-11 18:58] VITALS: BP 134/77; PULSE 75; RESP 18; TEMP 97.7
[2023-01-11] MEDS ORDERED: PORTA CATH FLUSH 10 ML IVPUSH PRN ×2 (18:58→18:59)
== END 2023-01-11 14:00 | disposition home or self-care (01) ==
LOC: JONCCHEMO 10:45
PROVIDERS: ATTEND Internal Medicine Hematology & Oncology
PROC: 3E033GC Introduction of Other Therapeutic Substance into Peripheral Vein, Percutaneous Approach (ICD-10-PCS; principal; 2023-01-11)
PROC: 3E013GC Introduction of Other Therapeutic Substance into Subcutaneous Tissue, Percutaneous Approach (ICD-10-PCS; 2023-01-11)
DX: C50.011 Malignant neoplasm of nipple and areola, right female breast (principal); Z76.89 Persons encountering health services in other specified circumstances
CPT/HCPCS: 96365; 96372; 96375; Q5111

== ENCOUNTER 2023-01-12 10:50 | Day surgery (SDC) | payer BC ==
[~2023-01-12 10:50] MED LIST changes: +DEXAMETHASONE SODIUM PHOSPHATE 4 MG in SODIUM CHLORIDE 50 ML IVPB ONE; -DEXAMETHASONE SODIUM PHOSPHATE 6 MG in SODIUM CHLORIDE 50 ML IVPB ONE; -PEGFILGRASTIM-CBQV (UDENYCA) 6 MG/0.6 ML SYRINGE SQ ONE
[2023-01-12 14:24] VITALS: RESP 20; TEMP 98.2
[2023-01-12 14:47] VITALS: BP 150/77; PULSE 89
[2023-01-12] MEDS ORDERED: PORTA CATH FLUSH 10 ML IVPUSH PRN (14:47)
== END 2023-01-12 14:45 | disposition home or self-care (01) ==
LOC: JONCCHEMO 10:50
PROVIDERS: ATTEND Internal Medicine Hematology & Oncology
PROC: 3E043GC Introduction of Other Therapeutic Substance into Central Vein, Percutaneous Approach (ICD-10-PCS; principal; 2023-01-12)
DX: C50.011 Malignant neoplasm of nipple and areola, right female breast (principal); Z76.89 Persons encountering health services in other specified circumstances
CPT/HCPCS: 96365; 96375

== ENCOUNTER 2023-01-31 10:04 | Day surgery (SDC) | payer BC ==
[2023-01-31] MEDS ORDERED: DEXAMETHASONE SODIUM PHOSPHATE 10 MG in SODIUM CHLORIDE 50 ML IVPB ONE (11:00)
[2023-01-31] MEDS ORDERED: FOSAPREPITANT DIMEGLUMINE 150 MG in SODIUM CHLORIDE 145 ML IVPB ONE (11:00)
[2023-01-31] MEDS ORDERED: SODIUM CHLORIDE 250 ML IV ONE (11:00)
[2023-01-31] MEDS ORDERED: PALONOSETRON HCL 0.25 MG/5 ML VIAL IVPUSH ONE (11:00)
[2023-01-31 11:11] LABS: BASO % 0.5 % (0-2.0); EOS % 0.5 % (0-4.5); HEMATOCRIT 27.4 % (32.4-45.2); HEMOGLOBIN 9.4 GM/dL (10.7-15.3); LYMPH % 47.6 % (8-40); MCH 34.3 pg (25.7-33.7); MCHC 34.4 g/dl (32.0-36.0); MEAN CELL VOLUME 99.7 fl (80-96); MEAN PLT VOLUME 7.4 fl (7.5-11.1); MONO % 12.2 % (3.8-10.2); NEUT % 39.2 % (42.8-82.8); PLATELET COUNT 152 10^3/uL (134-434); RBC 2.75 M/mm3 (3.60-5.2); WHITE BLOOD COUNT 5.9 K/mm3 (4.0-10.0)
[2023-01-31] MEDS ORDERED: SODIUM CHLORIDE IVPB ONE ×2 (11:30→13:00)
[2023-01-31] MEDS ORDERED: TRASTUZUMAB ANNS IVPB ONE (11:30)
[2023-01-31 11:48] LABS: ALBUMIN 3.4 g/dl (3.4-5.0); CALCIUM 8.9 mg/dL (8.5-10.1); MAGNESIUM 1.8 mg/dL (1.8-2.4)
[2023-01-31 11:51] LABS: BILIRUBIN,DIRECT 0.1 mg/dL (0.0-0.2); CREATININE 0.8 mg/dL (0.55-1.3)
[2023-01-31 11:53] LABS: BILIRUBIN,TOTAL 0.4 mg/dL (0.2-1)
[2023-01-31 11:54] LABS: BLOOD UREA NITROGEN 17.8 mg/dL (7-18)
[2023-01-31] MEDS ORDERED: SODIUM CHLORIDE IV ONE (12:00)
[2023-01-31] MEDS ORDERED: DOCETAXEL IV ONE (12:00)
[2023-01-31] MEDS ORDERED: CARBOPLATIN IVPB ONE (13:00)
[2023-01-31 17:38] VITALS: TEMP 98.2
[2023-01-31 17:43] VITALS: BP 135/84; PULSE 94; RESP 18
[2023-01-31] MEDS ORDERED: PORTA CATH FLUSH 10 ML IVPUSH PRN (17:43)
== END 2023-01-31 15:40 | disposition home or self-care (01) ==
LOC: JONCCHEMO 10:04
PROVIDERS: ATTEND Internal Medicine Hematology & Oncology
DX: Z51.11 Encounter for antineoplastic chemotherapy (principal); C50.011 Malignant neoplasm of nipple and areola, right female breast
CPT/HCPCS: 36415; 80048; 80076; 83735; 85025; 96367; 96375; 96413; 96417; J1453; J2469; J9171; Q5117

== ENCOUNTER 2023-02-01 09:45 | Day surgery (SDC) | payer BC ==
[2023-02-01] MEDS ORDERED: PEGFILGRASTIM-CBQV (UDENYCA) 6 MG/0.6 ML SYRINGE SQ ONE (10:00)
[2023-02-01] MEDS ORDERED: PROCHLORPERAZINE INJECTION 10 MG in SODIUM CHLORIDE 50 ML IVPB ONE (10:00)
[2023-02-01] MEDS ORDERED: D5-1/2NS+20 MEQ KCL - 20 MEQ/1,000 ML INFUS.BAG IV ONE (10:00)
[2023-02-01] MEDS ORDERED: MAGNESIUM SULFATE IN WATER 2 GM/50 ML IVPB IVPB ONE (10:00)
[2023-02-01] MEDS ORDERED: DEXAMETHASONE SODIUM PHOSPHATE 6 MG in SODIUM CHLORIDE 50 ML IVPB ONE (10:00)
[2023-02-01 15:51] VITALS: RESP 20; TEMP 98.1
[2023-02-01] MEDS ORDERED: PORTA CATH FLUSH 10 ML IVPUSH PRN (15:51)
[2023-02-02 07:52] VITALS: BP 154/90; PULSE 86
== END 2023-02-01 13:40 | disposition home or self-care (01) ==
LOC: JONCCHEMO 09:45
PROVIDERS: ATTEND Internal Medicine Hematology & Oncology
PROC: 3E043GC Introduction of Other Therapeutic Substance into Central Vein, Percutaneous Approach (ICD-10-PCS; principal; 2023-02-01)
DX: C50.011 Malignant neoplasm of nipple and areola, right female breast (principal); Z76.89 Persons encountering health services in other specified circumstances
CPT/HCPCS: 96365; 96372; 96375; Q5111

== ENCOUNTER 2023-02-02 10:08 | Day surgery (SDC) | payer BC ==
[2023-02-02 17:21] VITALS: RESP 20; TEMP 98.3
[2023-02-02 17:25] VITALS: BP 148/88; PULSE 103
[2023-02-02] MEDS ORDERED: PORTA CATH FLUSH 10 ML IVPUSH PRN (17:25)
== END 2023-02-02 14:20 | disposition home or self-care (01) ==
LOC: JONCCHEMO 10:08
PROVIDERS: ATTEND Internal Medicine Hematology & Oncology
PROC: 3E043GC Introduction of Other Therapeutic Substance into Central Vein, Percutaneous Approach (ICD-10-PCS; principal; 2023-02-02)
DX: C50.011 Malignant neoplasm of nipple and areola, right female breast (principal); Z76.89 Persons encountering health services in other specified circumstances
CPT/HCPCS: 96365; 96367

== ENCOUNTER 2023-02-28 09:41 | Day surgery (SDC) | payer BC ==
[2023-02-28] MEDS ORDERED: TRASTUZUMAB-ANNS 520 MG in SODIUM CHLORIDE 250 ML IVPB ONE (10:00)
[2023-02-28] MEDS ORDERED: SODIUM CHLORIDE 250 ML IV ONE (10:00)
[2023-02-28 10:33] LABS: BASO % 0.4 % (0-2.0); EOS % 0.9 % (0-4.5); HEMATOCRIT 28.6 % (32.4-45.2); HEMOGLOBIN 9.9 GM/dL (10.7-15.3); LYMPH % 39.4 % (8-40); MCH 36.2 pg (25.7-33.7); MCHC 34.6 g/dl (32.0-36.0); MEAN CELL VOLUME 104.8 fl (80-96); MEAN PLT VOLUME 6.7 fl (7.5-11.1); MONO % 9.8 % (3.8-10.2); NEUT % 49.5 % (42.8-82.8); PLATELET COUNT 238 10^3/uL (134-434); RBC 2.73 M/mm3 (3.60-5.2); RDW 16.3 % (11.6-15.6); WHITE BLOOD COUNT 5.2 K/mm3 (4.0-10.0)
[2023-02-28 10:44] LABS: POTASSIUM 4.5 mmol/L (3.5-5.1)
[2023-02-28 10:46] LABS: CALCIUM 9.2 mg/dL (8.5-10.1)
[2023-02-28 10:47] LABS: ALBUMIN 3.6 g/dl (3.4-5.0); BLOOD UREA NITROGEN 12.5 mg/dL (7-18); MAGNESIUM 1.8 mg/dL (1.8-2.4)
[2023-02-28 10:49] LABS: BILIRUBIN,DIRECT 0.1 mg/dL (0.0-0.2)
[2023-02-28 10:50] LABS: CREATININE 0.8 mg/dL (0.55-1.3)
[2023-02-28 10:51] LABS: BILIRUBIN,TOTAL 0.2 mg/dL (0.2-1); TOT PROT 7.1 g/dl (6.4-8.2)
[2023-02-28 15:25] VITALS: BP 139/85; PULSE 104; RESP 18; TEMP 97.9
[2023-02-28] MEDS ORDERED: PORTA CATH FLUSH 10 ML IVPUSH PRN (15:25)
== END 2023-02-28 12:30 | disposition home or self-care (01) ==
LOC: JONCCHEMO 09:41 → J7W 09:45 → JONCCHEMO 12:30
PROVIDERS: ATTEND Internal Medicine Hematology & Oncology
DX: Z51.11 Encounter for antineoplastic chemotherapy (principal); C50.011 Malignant neoplasm of nipple and areola, right female breast
CPT/HCPCS: 36415; 80048; 80076; 83735; 85025; 96413; Q5117

== ENCOUNTER 2023-03-21 10:38 | Day surgery (SDC) | payer BC ==
[~2023-03-21 10:38] MED LIST changes: -D5-1/2NS+20 MEQ KCL - 20 MEQ/1,000 ML INFUS.BAG IV ONE; -DEXAMETHASONE SODIUM PHOSPHATE 4 MG in SODIUM CHLORIDE 50 ML IVPB ONE; -MAGNESIUM SULFATE IN WATER 2 GM/50 ML IVPB IVPB ONE; -PROCHLORPERAZINE INJECTION 10 MG in SODIUM CHLORIDE 50 ML IVPB ONE; +SODIUM CHLORIDE 250 ML IV ONE; +TRASTUZUMAB-ANNS 520 MG in SODIUM CHLORIDE 250 ML IVPB ONE
[2023-03-21 11:16] LABS: BASO % 0.8 % (0-2.0); EOS % 2.9 % (0-4.5); HEMATOCRIT 34.5 % (32.4-45.2); HEMOGLOBIN 11.4 GM/dL (10.7-15.3); LYMPH % 49.2 % (8-40); MCH 34.2 pg (25.7-33.7); MCHC 33.2 g/dl (32.0-36.0); MEAN PLT VOLUME 7.6 fl (7.5-11.1); MONO % 8.9 % (3.8-10.2); NEUT % 38.2 % (42.8-82.8); PLATELET COUNT 284 10^3/uL (134-434); RBC 3.35 M/mm3 (3.60-5.2); RDW 14.4 % (11.6-15.6); WHITE BLOOD COUNT 6.1 K/mm3 (4.0-10.0)
[2023-03-21 11:36] LABS: POTASSIUM 4.7 mmol/L (3.5-5.1)
[2023-03-21 11:38] LABS: ALBUMIN 3.7 g/dl (3.4-5.0); BLOOD UREA NITROGEN 14.3 mg/dL (7-18); CALCIUM 9.4 mg/dL (8.5-10.1)
[2023-03-21 11:41] LABS: BILIRUBIN,DIRECT 0.1 mg/dL (0.0-0.2); CREATININE 0.8 mg/dL (0.55-1.3)
[2023-03-21 11:43] LABS: BILIRUBIN,TOTAL 0.3 mg/dL (0.2-1); TOT PROT 7.5 g/dl (6.4-8.2)
[2023-03-21] MEDS ORDERED: PORTA CATH FLUSH 10 ML IVPUSH PRN (16:38)
[2023-03-21 16:39] VITALS: BP 125/88; PULSE 102; RESP 16; TEMP 98.1
== END 2023-03-21 13:05 | disposition home or self-care (01) ==
LOC: JONCCHEMO 10:38 → J7W 10:45 → JONCCHEMO 13:05
PROVIDERS: ATTEND Internal Medicine Hematology & Oncology
DX: Z51.11 Encounter for antineoplastic chemotherapy (principal); C50.011 Malignant neoplasm of nipple and areola, right female breast
CPT/HCPCS: 36415; 80048; 80076; 82378; 83735; 85025; 86300; 96413; Q5117

== ENCOUNTER 2023-05-23 10:10 | Day surgery (SDC) | payer BC ==
[~2023-05-23 10:10] MED LIST changes: -TRASTUZUMAB-ANNS 520 MG in SODIUM CHLORIDE 250 ML IVPB ONE
[2023-05-23] MEDS ORDERED: TRASTUZUMAB-ANNS 510 MG in SODIUM CHLORIDE 250 ML IVPB ONE (10:30)
[2023-05-23 11:22] LABS: BASO % 0.7 % (0-2.0); EOS % 2.5 % (0-4.5); HEMATOCRIT 36.4 % (32.4-45.2); LYMPH % 47.8 % (8-40); MCH 31.6 pg (25.7-33.7); MEAN CELL VOLUME 95.7 fl (80-96); MEAN PLT VOLUME 7.8 fl (7.5-11.1); MONO % 8.9 % (3.8-10.2); NEUT % 40.1 % (42.8-82.8); PLATELET COUNT 248 10^3/uL (134-434); RBC 3.81 M/mm3 (3.60-5.2); RDW 13.4 % (11.6-15.6); WHITE BLOOD COUNT 5.9 K/mm3 (4.0-10.0)
[2023-05-23 11:40] LABS: POTASSIUM 4.5 mmol/L (3.5-5.1)
[2023-05-23 11:45] LABS: ALBUMIN 3.7 g/dl (3.4-5.0); BLOOD UREA NITROGEN 15.5 mg/dL (7-18); CALCIUM 9.6 mg/dL (8.5-10.1); MAGNESIUM 2.1 mg/dL (1.8-2.4)
[2023-05-23 11:48] LABS: BILIRUBIN,DIRECT 0.1 mg/dL (0.0-0.2)
[2023-05-23 11:49] LABS: BILIRUBIN,TOTAL 0.2 mg/dL (0.2-1); TOT PROT 7.4 g/dl (6.4-8.2)
[2023-05-23 17:01] VITALS: BP 155/97; PULSE 81; RESP 20; TEMP 97.9
[2023-05-23] MEDS ORDERED: PORTA CATH FLUSH 10 ML IVPUSH PRN (17:01)
== END 2023-05-23 13:00 | disposition home or self-care (01) ==
LOC: JONCCHEMO 10:10 → J7W 10:15 → JONCCHEMO 13:00
PROVIDERS: ATTEND Internal Medicine Hematology & Oncology
DX: Z51.11 Encounter for antineoplastic chemotherapy (principal); C50.919 Malignant neoplasm of unspecified site of unspecified female breast
CPT/HCPCS: 36415; 80048; 80076; 82378; 83735; 85025; 86300; 96361; 96413; Q5117

== ENCOUNTER 2023-06-13 09:58 | Day surgery (SDC) | payer BC ==
[2023-06-13] MEDS ORDERED: TRASTUZUMAB-ANNS 510 MG in SODIUM CHLORIDE 250 ML IVPB ONE (10:00)
[2023-06-13 10:41] LABS: BASO % 0.5 % (0-2.0); HEMATOCRIT 37.5 % (32.4-45.2); HEMOGLOBIN 12.2 GM/dL (10.7-15.3); LYMPH % 45.1 % (8-40); MCH 30.7 pg (25.7-33.7); MCHC 32.4 g/dl (32.0-36.0); MEAN CELL VOLUME 94.7 fl (80-96); MONO % 8.9 % (3.8-10.2); NEUT % 42.5 % (42.8-82.8); PLATELET COUNT 286 10^3/uL (134-434); RBC 3.96 M/mm3 (3.60-5.2); RDW 13.7 % (11.6-15.6); WHITE BLOOD COUNT 6.6 K/mm3 (4.0-10.0)
[2023-06-13 10:55] LABS: POTASSIUM 4.5 mmol/L (3.5-5.1)
[2023-06-13 10:57] LABS: ALBUMIN 3.9 g/dl (3.4-5.0); BLOOD UREA NITROGEN 19.1 mg/dL (7-18); CALCIUM 9.4 mg/dL (8.5-10.1); MAGNESIUM 1.9 mg/dL (1.8-2.4)
[2023-06-13 11:00] LABS: BILIRUBIN,DIRECT 0.1 mg/dL (0.0-0.2)
[2023-06-13 11:02] LABS: BILIRUBIN,TOTAL 0.2 mg/dL (0.2-1); TOT PROT 7.4 g/dl (6.4-8.2)
[2023-06-13] MEDS ORDERED: PORTA CATH FLUSH 10 ML IVPUSH PRN (18:15)
[2023-06-13 18:16] VITALS: BP 135/89; PULSE 76; RESP 20; TEMP 98.2
[2023-06-14 08:05] LABS: CARCINOEMBRYONIC ANTIGEN 1.6 ng/mL (0.0-4.7)
== END 2023-06-13 12:50 | disposition home or self-care (01) ==
LOC: JONCCHEMO 09:58 → J7W 10:11 → JONCCHEMO 12:50
PROVIDERS: ATTEND Internal Medicine Hematology & Oncology
DX: Z51.11 Encounter for antineoplastic chemotherapy (principal); C50.011 Malignant neoplasm of nipple and areola, right female breast
CPT/HCPCS: 36415; 80048; 80076; 82306; 82378; 83735; 85025; 86300; 96413; Q5117

== ENCOUNTER 2023-08-08 10:39 | Day surgery (SDC) | payer BC ==
[~2023-08-08 10:39] MED LIST changes: +TRASTUZUMAB-ANNS 520 MG in SODIUM CHLORIDE 250 ML IVPB ONE
[2023-08-08 11:04] LABS: BASO % 0.6 % (0-2.0); EOS % 2.9 % (0-4.5); HEMATOCRIT 36.9 % (32.4-45.2); HEMOGLOBIN 12.3 GM/dL (10.7-15.3); LYMPH % 39.8 % (8-40); MCH 30.4 pg (25.7-33.7); MCHC 33.4 g/dl (32.0-36.0); MEAN CELL VOLUME 91.2 fl (80-96); MEAN PLT VOLUME 7.5 fl (7.5-11.1); MONO % 7.8 % (3.8-10.2); NEUT % 48.9 % (42.8-82.8); PLATELET COUNT 267 10^3/uL (134-434); RBC 4.04 M/mm3 (3.60-5.2); RDW 14.4 % (11.6-15.6); WHITE BLOOD COUNT 5.6 K/mm3 (4.0-10.0)
[2023-08-08 11:22] LABS: POTASSIUM 4.4 mmol/L (3.5-5.1)
[2023-08-08 11:24] LABS: ALBUMIN 3.7 g/dl (3.4-5.0); BLOOD UREA NITROGEN 13.6 mg/dL (7-18); MAGNESIUM 1.9 mg/dL (1.8-2.4)
[2023-08-08 11:27] LABS: BILIRUBIN,DIRECT 0.1 mg/dL (0.0-0.2); CREATININE 0.9 mg/dL (0.55-1.3)
[2023-08-08 11:29] LABS: BILIRUBIN,TOTAL 0.3 mg/dL (0.2-1); TOT PROT 7.3 g/dl (6.4-8.2)
[2023-08-08 15:55] VITALS: RESP 18; TEMP 97.9
[2023-08-08 15:58] VITALS: BP 132/80; PULSE 84
[2023-08-08] MEDS ORDERED: PORTA CATH FLUSH 10 ML IVPUSH PRN (15:58)
[2023-08-09 13:08] LABS: CARCINOEMBRYONIC ANTIGEN 1.5 ng/mL (0.0-4.7)
== END 2023-08-08 13:35 | disposition home or self-care (01) ==
LOC: JONCCHEMO 10:39 → J7W 10:41 → JONCCHEMO 13:35
PROVIDERS: ATTEND Internal Medicine Hematology & Oncology
DX: Z51.11 Encounter for antineoplastic chemotherapy (principal); C50.011 Malignant neoplasm of nipple and areola, right female breast
CPT/HCPCS: 36415; 80048; 80076; 82306; 82378; 83735; 85025; 86300; 96413; Q5117

== ENCOUNTER 2023-08-29 10:45 | Day surgery (SDC) | payer BC ==
[~2023-08-29 10:45] MED LIST changes: +TRASTUZUMAB-ANNS 510 MG in SODIUM CHLORIDE 250 ML IVPB ONE; -TRASTUZUMAB-ANNS 520 MG in SODIUM CHLORIDE 250 ML IVPB ONE
[2023-08-29 11:38] LABS: BASO % 0.7 % (0-2.0); EOS % 2.8 % (0-4.5); HEMATOCRIT 38.1 % (32.4-45.2); HEMOGLOBIN 12.2 GM/dL (10.7-15.3); LYMPH % 41.1 % (8-40); MCH 29.8 pg (25.7-33.7); MEAN CELL VOLUME 93.1 fl (80-96); MEAN PLT VOLUME 7.7 fl (7.5-11.1); MONO % 7.3 % (3.8-10.2); NEUT % 48.1 % (42.8-82.8); PLATELET COUNT 273 10^3/uL (134-434); RBC 4.09 M/mm3 (3.60-5.2); RDW 14.4 % (11.6-15.6); WHITE BLOOD COUNT 6.4 K/mm3 (4.0-10.0)
[2023-08-29 11:59] LABS: POTASSIUM 4.4 mmol/L (3.5-5.1)
[2023-08-29 12:02] LABS: ALBUMIN 3.6 g/dl (3.4-5.0); BLOOD UREA NITROGEN 17.8 mg/dL (7-18); MAGNESIUM 1.9 mg/dL (1.8-2.4)
[2023-08-29 12:04] LABS: BILIRUBIN,DIRECT 0.1 mg/dL (0.0-0.2)
[2023-08-29 12:05] LABS: CREATININE 0.8 mg/dL (0.55-1.3)
[2023-08-29 12:06] LABS: TOT PROT 7.4 g/dl (6.4-8.2)
[2023-08-29 12:07] LABS: BILIRUBIN,TOTAL 0.3 mg/dL (0.2-1)
[2023-08-29 16:27] VITALS: BP 142/91; PULSE 81; RESP 18; TEMP 97.8
[2023-08-29] MEDS ORDERED: PORTA CATH FLUSH 10 ML IVPUSH PRN (16:27)
[2023-08-30 08:06] LABS: CARCINOEMBRYONIC ANTIGEN 1.3 ng/mL (0.0-4.7)
== END 2023-08-29 14:30 | disposition home or self-care (01) ==
LOC: JONCCHEMO 10:45
PROVIDERS: ATTEND Internal Medicine Hematology & Oncology
DX: Z51.11 Encounter for antineoplastic chemotherapy (principal); C50.011 Malignant neoplasm of nipple and areola, right female breast
CPT/HCPCS: 36415; 80048; 80076; 82378; 83735; 85025; 86300; 96413; Q5117

== ENCOUNTER 2023-09-19 11:00 | Day surgery (SDC) | payer BC ==
[~2023-09-19 11:00] MED LIST changes: +SODIUM CHLORIDE IVPB ONE; +TRASTUZUMAB ANNS IVPB ONE; -TRASTUZUMAB-ANNS 510 MG in SODIUM CHLORIDE 250 ML IVPB ONE
[2023-09-19 11:46] LABS: BASO % 0.7 % (0-2.0); EOS % 2.5 % (0-4.5); HEMATOCRIT 38.8 % (32.4-45.2); HEMOGLOBIN 12.9 GM/dL (10.7-15.3); LYMPH % 41.5 % (8-40); MCH 30.7 pg (25.7-33.7); MCHC 33.3 g/dl (32.0-36.0); MEAN PLT VOLUME 7.8 fl (7.5-11.1); MONO % 8.6 % (3.8-10.2); NEUT % 46.7 % (42.8-82.8); PLATELET COUNT 276 10^3/uL (134-434); RBC 4.21 M/mm3 (3.60-5.2); WHITE BLOOD COUNT 6.3 K/mm3 (4.0-10.0)
[2023-09-19 12:03] LABS: POTASSIUM 4.4 mmol/L (3.5-5.1)
[2023-09-19 12:06] LABS: CALCIUM 9.1 mg/dL (8.5-10.1)
[2023-09-19 12:07] LABS: ALBUMIN 3.7 g/dl (3.4-5.0); BLOOD UREA NITROGEN 20.3 mg/dL (7-18)
[2023-09-19 12:09] LABS: BILIRUBIN,DIRECT 0.1 mg/dL (0.0-0.2)
[2023-09-19 12:10] LABS: CREATININE 0.9 mg/dL (0.55-1.3)
[2023-09-19 12:11] LABS: BILIRUBIN,TOTAL 0.4 mg/dL (0.2-1)
[2023-09-19 12:12] LABS: TOT PROT 7.6 g/dl (6.4-8.2)
[2023-09-19 17:13] VITALS: BP 157/91; PULSE 89; RESP 18; TEMP 98
[2023-09-19] MEDS ORDERED: PORTA CATH FLUSH 10 ML IVPUSH PRN (17:13)
[2023-09-20 11:17] LABS: CARCINOEMBRYONIC ANTIGEN 1.1 ng/mL (0.0-4.7)
== END 2023-09-19 13:20 | disposition home or self-care (01) ==
LOC: JONCCHEMO 11:00 → J7W 11:03 → JONCCHEMO 13:20
PROVIDERS: ATTEND Internal Medicine Hematology & Oncology
DX: Z51.11 Encounter for antineoplastic chemotherapy (principal); C50.011 Malignant neoplasm of nipple and areola, right female breast
CPT/HCPCS: 36415; 80048; 80076; 82378; 83735; 85025; 86300; 96413; Q5117

== ENCOUNTER 2023-10-17 11:37 | Day surgery (SDC) | payer BC ==
[~2023-10-17 11:37] MED LIST changes: -SODIUM CHLORIDE IVPB ONE; -TRASTUZUMAB ANNS IVPB ONE; +TRASTUZUMAB-ANNS 520 MG in SODIUM CHLORIDE 250 ML IVPB ONE
[2023-10-17 12:53] LABS: BASO % 0.7 % (0-2.0); EOS % 2.6 % (0-4.5); HEMOGLOBIN 12.5 GM/dL (10.7-15.3); LYMPH % 41.1 % (8-40); MCH 30.3 pg (25.7-33.7); MCHC 32.9 g/dl (32.0-36.0); MEAN CELL VOLUME 92.2 fl (80-96); MEAN PLT VOLUME 7.9 fl (7.5-11.1); MONO % 8.5 % (3.8-10.2); NEUT % 47.1 % (42.8-82.8); PLATELET COUNT 281 10^3/uL (134-434); RBC 4.12 M/mm3 (3.60-5.2); WHITE BLOOD COUNT 6.5 K/mm3 (4.0-10.0)
[2023-10-17 13:06] LABS: POTASSIUM 4.1 mmol/L (3.5-5.1)
[2023-10-17 13:09] LABS: ALBUMIN 3.5 g/dl (3.4-5.0); CALCIUM 9.3 mg/dL (8.5-10.1)
[2023-10-17 13:10] LABS: BLOOD UREA NITROGEN 14.5 mg/dL (7-18)
[2023-10-17 13:12] LABS: BILIRUBIN,DIRECT 0.1 mg/dL (0.0-0.2); CREATININE 0.9 mg/dL (0.55-1.3)
[2023-10-17 13:14] LABS: BILIRUBIN,TOTAL 0.2 mg/dL (0.2-1); TOT PROT 7.5 g/dl (6.4-8.2)
[2023-10-17 17:37] VITALS: BP 140/87; PULSE 85; RESP 20; TEMP 98
[2023-10-17] MEDS ORDERED: PORTA CATH FLUSH 10 ML IVPUSH PRN (17:37)
[2023-10-19 10:07] LABS: CARCINOEMBRYONIC ANTIGEN 0.8 ng/mL (0.0-4.7)
== END 2023-10-17 15:25 | disposition home or self-care (01) ==
LOC: JONCCHEMO 11:37 → J7W 11:39 → JONCCHEMO 15:25
PROVIDERS: ATTEND Internal Medicine Hematology & Oncology
DX: Z51.11 Encounter for antineoplastic chemotherapy (principal); C50.011 Malignant neoplasm of nipple and areola, right female breast
CPT/HCPCS: 36415; 80048; 80076; 82378; 83735; 85025; 86300; 96413; Q5117

== ENCOUNTER 2023-11-07 10:58 | Day surgery (SDC) | payer BC ==
[2023-11-07 11:50] LABS: BASO % 0.5 % (0-2.0); EOS % 2.5 % (0-4.5); HEMATOCRIT 37.4 % (32.4-45.2); HEMOGLOBIN 12.5 GM/dL (10.7-15.3); LYMPH % 46.5 % (8-40); MCH 30.5 pg (25.7-33.7); MCHC 33.4 g/dl (32.0-36.0); MEAN CELL VOLUME 91.2 fl (80-96); MEAN PLT VOLUME 7.6 fl (7.5-11.1); MONO % 6.6 % (3.8-10.2); NEUT % 43.9 % (42.8-82.8); PLATELET COUNT 284 10^3/uL (134-434); RDW 13.8 % (11.6-15.6); WHITE BLOOD COUNT 6.5 K/mm3 (4.0-10.0)
[2023-11-07 12:17] LABS: POTASSIUM 4.6 mmol/L (3.5-5.1)
[2023-11-07 12:20] LABS: BLOOD UREA NITROGEN 16.3 mg/dL (7-18); CALCIUM 9.6 mg/dL (8.5-10.1)
[2023-11-07 12:21] LABS: ALBUMIN 3.8 g/dl (3.4-5.0)
[2023-11-07 12:24] LABS: BILIRUBIN,DIRECT 0.1 mg/dL (0.0-0.2); CREATININE 0.9 mg/dL (0.55-1.3)
[2023-11-07 12:25] LABS: BILIRUBIN,TOTAL 0.2 mg/dL (0.2-1); TOT PROT 7.9 g/dl (6.4-8.2)
[2023-11-07 16:58] VITALS: RESP 20; TEMP 98.1
[2023-11-07] MEDS ORDERED: PORTA CATH FLUSH 10 ML IVPUSH PRN (17:11)
[2023-11-07 17:12] VITALS: BP 155/92; PULSE 89
[2023-11-08 08:06] LABS: CARCINOEMBRYONIC ANTIGEN 0.8 ng/mL (0.0-4.7)
== END 2023-11-07 15:00 | disposition home or self-care (01) ==
LOC: JONCCHEMO 10:58 → J7W 10:59 → JONCCHEMO 15:00
PROVIDERS: ATTEND Internal Medicine Hematology & Oncology
DX: Z51.11 Encounter for antineoplastic chemotherapy (principal); C50.011 Malignant neoplasm of nipple and areola, right female breast
CPT/HCPCS: 36415; 80048; 80076; 82306; 82378; 83735; 85025; 86300; 96413; Q5117

== ENCOUNTER 2023-11-28 11:48 | Day surgery (SDC) | payer BC ==
[2023-11-28 12:26] LABS: BASO % 0.7 % (0-2.0); EOS % 2.8 % (0-4.5); HEMATOCRIT 38.3 % (32.4-45.2); HEMOGLOBIN 12.7 GM/dL (10.7-15.3); LYMPH % 45.9 % (8-40); MCH 30.3 pg (25.7-33.7); MCHC 33.1 g/dl (32.0-36.0); MEAN CELL VOLUME 91.5 fl (80-96); MEAN PLT VOLUME 7.6 fl (7.5-11.1); MONO % 7.1 % (3.8-10.2); NEUT % 43.5 % (42.8-82.8); PLATELET COUNT 290 10^3/uL (134-434); RBC 4.18 M/mm3 (3.60-5.2); RDW 14.2 % (11.6-15.6); WHITE BLOOD COUNT 6.3 K/mm3 (4.0-10.0)
[2023-11-28] MEDS: SODIUM CHLORIDE 250 ML IV ONE (12:32)
[2023-11-28 13:00] LABS: ALBUMIN 3.8 g/dl (3.4-5.0); BLOOD UREA NITROGEN 20.5 mg/dL (7-18)
[2023-11-28 13:03] LABS: BILIRUBIN,DIRECT 0.1 mg/dL (0.0-0.2)
[2023-11-28 13:05] LABS: BILIRUBIN,TOTAL 0.2 mg/dL (0.2-1); TOT PROT 7.8 g/dl (6.4-8.2)
[2023-11-28] MEDS: TRASTUZUMAB ANNS IVPB ONE (14:11)
[2023-11-28] MEDS: SODIUM CHLORIDE IVPB ONE (14:11)
[2023-11-28] MEDS: PORTA CATH FLUSH 10 ML IVPUSH PRN (14:55)
[2023-11-28 17:50] VITALS: RESP 20; TEMP 98
[2023-11-28 17:56] VITALS: BP 142/88; PULSE 88
== END 2023-11-28 15:25 | disposition home or self-care (01) ==
LOC: JONCCHEMO 11:48 → J7W 11:56 → JONCCHEMO 15:25
PROVIDERS: ATTEND Internal Medicine Hematology & Oncology
PROC: 3E04305 Introduction of Other Antineoplastic into Central Vein, Percutaneous Approach (ICD-10-PCS; principal; 2023-11-28)
PROC: 3E0437Z Introduction of Electrolytic and Water Balance Substance into Central Vein, Percutaneous Approach (ICD-10-PCS; 2023-11-28)
DX: Z51.11 Encounter for antineoplastic chemotherapy (principal); C50.011 Malignant neoplasm of nipple and areola, right female breast
CPT/HCPCS: 36415; 80048; 80076; 82378; 83735; 85025; 86300; 96361; 96413; Q5117

== ENCOUNTER 2023-12-19 10:48 | Day surgery (SDC) | payer BC ==
[2023-12-19 11:42] LABS: BASO % 0.6 % (0-2.0); EOS % 2.4 % (0-4.5); HEMATOCRIT 37.7 % (32.4-45.2); HEMOGLOBIN 12.4 GM/dL (10.7-15.3); LYMPH % 43.4 % (8-40); MCH 30.3 pg (25.7-33.7); MCHC 32.8 g/dl (32.0-36.0); MEAN CELL VOLUME 92.5 fl (80-96); MEAN PLT VOLUME 7.8 fl (7.5-11.1); MONO % 7.8 % (3.8-10.2); NEUT % 45.8 % (42.8-82.8); PLATELET COUNT 265 10^3/uL (134-434); RBC 4.08 M/mm3 (3.60-5.2); RDW 14.4 % (11.6-15.6); WHITE BLOOD COUNT 6.5 K/mm3 (4.0-10.0)
[2023-12-19 12:00] LABS: POTASSIUM 5.4 mmol/L (3.5-5.1)
[2023-12-19 12:02] LABS: ALBUMIN 3.7 g/dl (3.4-5.0); BLOOD UREA NITROGEN 18.8 mg/dL (7-18); CALCIUM 10.1 mg/dL (8.5-10.1)
[2023-12-19 12:05] LABS: BILIRUBIN,DIRECT 0.1 mg/dL (0.0-0.2)
[2023-12-19 12:07] LABS: BILIRUBIN,TOTAL 0.4 mg/dL (0.2-1); TOT PROT 7.5 g/dl (6.4-8.2)
[2023-12-19] MEDS: SODIUM CHLORIDE 250 ML IV ONE (13:01)
[2023-12-19] MEDS: TRASTUZUMAB-ANNS 520 MG in SODIUM CHLORIDE 250 ML IVPB ONE (14:07)
[2023-12-19] MEDS: SODIUM POLYSTYRENE SULFONATE 15 GM/60 ML BOTTLE PO ONE (14:44)
[2023-12-19] MEDS: PORTA CATH FLUSH 10 ML IVPUSH PRN (14:49)
[2023-12-19 16:03] VITALS: RESP 18
[2023-12-19 16:12] VITALS: BP 148/90; PULSE 84; TEMP 98.2
[2023-12-20 08:06] LABS: CARCINOEMBRYONIC ANTIGEN 0.9 ng/mL (0.0-4.7)
== END 2023-12-19 15:30 | disposition home or self-care (01) ==
LOC: JONCCHEMO 10:48 → J7W 10:49 → JONCCHEMO 15:30
PROVIDERS: ATTEND Internal Medicine Hematology & Oncology
DX: Z51.11 Encounter for antineoplastic chemotherapy (principal); C50.011 Malignant neoplasm of nipple and areola, right female breast
CPT/HCPCS: 36415; 80048; 80076; 82378; 83735; 85025; 86300; 96413; J2997; Q5117

== ENCOUNTER 2024-01-09 11:03 | Day surgery (SDC) | payer BC ==
[2024-01-09] MEDS: SODIUM CHLORIDE 250 ML IV ONE (11:59)
[2024-01-09 12:14] LABS: BASO % 0.4 % (0-2.0); EOS % 2.1 % (0-4.5); HEMATOCRIT 38.6 % (32.4-45.2); HEMOGLOBIN 12.7 GM/dL (10.7-15.3); MCH 30.3 pg (25.7-33.7); MEAN CELL VOLUME 91.7 fl (80-96); MEAN PLT VOLUME 7.9 fl (7.5-11.1); MONO % 7.3 % (3.8-10.2); NEUT % 53.2 % (42.8-82.8); PLATELET COUNT 292 10^3/uL (134-434); RBC 4.21 M/mm3 (3.60-5.2); RDW 14.6 % (11.6-15.6); WHITE BLOOD COUNT 6.3 K/mm3 (4.0-10.0)
[2024-01-09 12:38] LABS: POTASSIUM 4.6 mmol/L (3.5-5.1)
[2024-01-09 12:40] LABS: ALBUMIN 3.7 g/dl (3.4-5.0); CALCIUM 9.9 mg/dL (8.5-10.1)
[2024-01-09 12:41] LABS: BLOOD UREA NITROGEN 18.4 mg/dL (7-18)
[2024-01-09 12:43] LABS: BILIRUBIN,DIRECT 0.1 mg/dL (0.0-0.2)
[2024-01-09 12:45] LABS: BILIRUBIN,TOTAL 0.3 mg/dL (0.2-1)
[2024-01-09 12:46] LABS: TOT PROT 7.8 g/dl (6.4-8.2)
[2024-01-09] MEDS: TRASTUZUMAB-ANNS 520 MG in SODIUM CHLORIDE 250 ML IVPB ONE (13:37)
[2024-01-09 14:00] VITALS: RESP 18; TEMP 98.1
[2024-01-09] MEDS: PORTA CATH FLUSH 10 ML IVPUSH PRN (14:10)
[2024-01-09 14:30] VITALS: BP 115/71; PULSE 83
== END 2024-01-09 14:30 | disposition home or self-care (01) ==
LOC: J7W 11:03 → JONCCHEMO 11:03
PROVIDERS: ATTEND Internal Medicine Hematology & Oncology
DX: Z51.11 Encounter for antineoplastic chemotherapy (principal); C50.011 Malignant neoplasm of nipple and areola, right female breast
CPT/HCPCS: 36415; 80048; 80076; 82306; 82378; 83735; 85025; 86300; 96413; Q5117

== ENCOUNTER 2024-01-30 10:43 | Day surgery (SDC) | payer BC ==
[2024-01-30] MEDS: SODIUM CHLORIDE 250 ML IV ONE (11:11)
[2024-01-30 11:51] LABS: BASO % 0.4 % (0-2.0); EOS % 2.4 % (0-4.5); HEMATOCRIT 37.7 % (32.4-45.2); HEMOGLOBIN 12.4 GM/dL (10.7-15.3); LYMPH % 38.3 % (8-40); MCH 30.6 pg (25.7-33.7); MCHC 32.9 g/dl (32.0-36.0); MEAN PLT VOLUME 8.1 fl (7.5-11.1); MONO % 7.3 % (3.8-10.2); NEUT % 51.6 % (42.8-82.8); PLATELET COUNT 284 10^3/uL (134-434); RBC 4.05 M/mm3 (3.60-5.2); RDW 13.9 % (11.6-15.6); WHITE BLOOD COUNT 7.4 K/mm3 (4.0-10.0)
[2024-01-30 12:10] LABS: POTASSIUM 4.5 mmol/L (3.5-5.1)
[2024-01-30 12:14] LABS: ALBUMIN 3.6 g/dl (3.4-5.0); BLOOD UREA NITROGEN 16.4 mg/dL (7-18); CALCIUM 9.3 mg/dL (8.5-10.1); MAGNESIUM 1.7 mg/dL (1.8-2.4)
[2024-01-30 12:16] LABS: BILIRUBIN,DIRECT 0.1 mg/dL (0.0-0.2)
[2024-01-30 12:17] LABS: BILIRUBIN,TOTAL 0.3 mg/dL (0.2-1); CREATININE 0.8 mg/dL (0.55-1.3)
[2024-01-30 12:18] LABS: TOT PROT 7.4 g/dl (6.4-8.2)
[2024-01-30] MEDS: TRASTUZUMAB-ANNS 520 MG in SODIUM CHLORIDE 250 ML IVPB ONE (13:12)
[2024-01-30] MEDS: MAGNESIUM OXIDE 400 MG TABLET (FP) PO ONE (13:23)
[2024-01-30] MEDS ORDERED: PORTA CATH FLUSH 10 ML IVPUSH PRN (16:55)
[2024-01-30 16:56] VITALS: BP 143/87; PULSE 85; RESP 16; TEMP 97.1
[2024-01-31 08:11] LABS: CARCINOEMBRYONIC ANTIGEN 1.1 ng/mL (0.0-4.7)
== END 2024-01-30 14:15 | disposition home or self-care (01) ==
LOC: JONCCHEMO 10:43 → J7W 10:44 → JONCCHEMO 14:15
PROVIDERS: ATTEND Internal Medicine Hematology & Oncology
DX: Z51.11 Encounter for antineoplastic chemotherapy (principal); C50.011 Malignant neoplasm of nipple and areola, right female breast
CPT/HCPCS: 36415; 80048; 80076; 82306; 82378; 83735; 85025; 86300; 96413; Q5117

== ENCOUNTER 2024-03-18 04:10 | Day surgery (SDC) | payer BC ==
[2024-03-07 17:28] VITALS: BMI 34.3
[2024-03-18 07:15] VITALS: TEMP 98.4
[2024-03-18] MEDS: LIDOCAINE HCL 1%, 10 MG/ML (20ML VIAL) NR ONE ×2 (10:48)
[2024-03-18] MEDS ORDERED: LIDOCAINE HCL 1%, 10 MG/ML (20ML VIAL) ONE (10:50)
[2024-03-18 12:09] VITALS: BP 139/92; PULSE 85; RESP 20
== END 2024-03-18 11:55 | disposition home or self-care (01) ==
LOC: JASU-SURG 04:10
PROVIDERS: ATTEND Surgery
PROC: 0JPT0WZ Removal of Totally Implantable Vascular Access Device from Trunk Subcutaneous Tissue and Fascia, Open Approach (ICD-10-PCS; principal; 2024-03-18 10:00)
DX: Z45.2 Encounter for adjustment and management of vascular access device (principal); C50.919 Malignant neoplasm of unspecified site of unspecified female breast
CPT/HCPCS: 82962